=== PATIENT | male | born 1970 | race Two or more races ===

== ENCOUNTER 2020-10-02 17:17 | Emergency (ER) | payer SELFPAY ==
[~2020-10-02] VITALS: Ht 165.1 cm; Wt 75.0 kg
[2020-10-02] MEDS ORDERED: KETOROLAC 30 MG/ML VIAL. IVP ONE (18:45)
--- NOTE | 2020-10-02 18:57 | ED.ADGEN ---
Past Medical History Past Medical History: High Cholesterol, HIV, Hypertension, Seizure Additional Past Medical Histor: Liver Cirrhosis, alcohol abuse Past Surgical History: Appendectomy Smoking Status: Current Every Day Smoker Alcohol Use: Heavy General Adult EDM: Chief Complaint: SEIZURE HPI: HPI: Patient is a 50-year-old male with past medical history of HIV, cirrhosis, alcohol abuse, seizure disorder who presents to the emergency room after having a seizure at home. He had a second seizure in the waiting room. He states he has not been taking his medications as prescribed. He states he is feeling basically back to normal. He did drink today. He states that cirrhosis is due to too much alcohol. He has not been taking any of his medications. He has been having chest pain but states that this has been constant for several months and that he has been told that it is due to his cirrhosis. He denies any shortness of breath. He denies any new chest pain. He does not have any cough, URI symptoms, fever, chills, sweats. Review of Systems: Review of Systems: Complete ROS is negative unless otherwise documented in HPI Current Medications: Current Medications Medications (Trade) Dose Ordered Sig/Guido Start Time Stop Time Status Last Admin Dose Admin Ketorolac Tromethamine (Toradol 30mg Vial) 30 mg 1X ONCE 10/02/20 18:45 10/02/20 19:05 DC 10/02/20 19:14 30 MG Levetiracetam 1000 mg/Dextrose 110 ml @ 440 mls/hr 1X ONCE 10/02/20 19:00 10/02/20 19:14 DC 10/02/20 19:14 440 MLS/HR Lorazepam (Ativan Inj) 2 mg STK-MED ONCE 10/02/20 17:49 10/02/20 17:49 DC Allergies: Allergies: Allergies Uncoded Allergies Type Severity Reaction Last Updated Verified Unknown HIV medication. Allergy Unknown 10/02/20 Physical Exam: PE: General: Awake, alert, NAD. Well Nourished, well hydrated. Cooperative HEENT: Atraumatic, EOMI, PERRL, airway patent, moist oral mucosa Neck: Supple, trachea midline Respiratory: CTA bilaterally, normal effort, no wheezing/crackles CV: RRR, no murmur, cap refill <2 GI: Soft, nondistended, nontender, no masses MSK: No obvious deformities Skin: Warm, dry, intact Neuro: A&O x3, speech NL, sensory and motor grossly intact, no focal deficits Psych: Normal affect, normal mood, not suicidal or homicidal Current Patient Data: Labs: Laboratory Tests Test 10/02/20 18:05 10/02/20 19:20 Glucose (Fingerstick) 88 mg/dL (70-99) White Blood Count 5.3 x10^3/uL (4.0-11.0) Red Blood Count 4.23 x10^6/uL (4.30-5.70) L Hemoglobin 14.3 g/dL (13.0-17.5) Hematocrit 41.3 % (39.0-53.0) Mean Corpuscular Volume 98 fL (79-100) Mean Corpuscular Hemoglobin 34 pg (25-35) Mean Corpuscular Hemoglobin Concent 35 g/dL (31-37) Red Cell Distribution Width 15.2 % (11.5-14.5) H Platelet Count 134 x10^3/uL (140-400) L Neutrophils (%) (Auto) 44 % (31-73) Lymphocytes (%) (Auto) 41 % (24-48) Monocytes (%) (Auto) 11 % (0-9) H Eosinophils (%) (Auto) 3 % (0-3) Basophils (%) (Auto) 1 % (0-3) Neutrophils # (Auto) 2.4 x10^3/uL (1.8-7.7) Lymphocytes # (Auto) 2.2 x10^3/uL (1.0-4.8) Monocytes # (Auto) 0.6 x10^3/uL (0.0-1.1) Eosinophils # (Auto) 0.1 x10^3/uL (0.0-0.7) Basophils # (Auto) 0.1 x10^3/uL (0.0-0.2) Sodium Level 140 mmol/L (136-145) Potassium Level 3.8 mmol/L (3.5-5.1) Chloride Level 102 mmol/L (98-107) Carbon Dioxide Level 28 mmol/L (21-32) Anion Gap 10 (6-14) Blood Urea Nitrogen 6 mg/dL (8-26) L Creatinine 0.7 mg/dL (0.7-1.3) Estimated GFR (Cockcroft-Gault) 120.4 BUN/Creatinine Ratio 9 (6-20) Glucose Level 86 mg/dL (70-99) Calcium Level 8.2 mg/dL (8.5-10.1) L Total Bilirubin 0.3 mg/dL (0.2-1.0) Aspartate Amino Transferase (AST) 60 U/L (15-37) H Alanine Aminotransferase (ALT) 106 U/L (16-63) H Alkaline Phosphatase 63 U/L (46-116) Total Protein 8.1 g/dL (6.4-8.2) Albumin 3.8 g/dL (3.4-5.0) Albumin/Globulin Ratio 0.9 (1.0-1.7) L Ethyl Alcohol Level 340 mg/dL (0-10) H Laboratory Tests 10/02/20 19:20 Laboratory Tests 10/02/20 19:20 Vital Signs: Vital Signs Date Time Temp Pulse Resp B/P (MAP) Pulse Ox O2 Delivery O2 Flow Rate FiO2 10/02/20 17:38 98.1 94 18 174/111 (132) 96 Room Air 98.1 EKG: EKG: [] Heart Score: Risk Factors: Risk Factors: DM, Current or recent (<one month) smoker, HTN, HLP, family history of CAD, obesity. Risk Scores: Score 0 - 3: 2.5% MACE over next 6 weeks - Discharge Home Score 4 - 6: 20.3% MACE over next 6 weeks - Admit for Clinical Observation Score 7 - 10: 72.7% MACE over next 6 weeks - Early Invasive Strategies Radiology/Procedures: Radiology/Procedures: [] Course & Med Decision Making: Course & Med Decision Making Pertinent Labs and Imaging studies reviewed. (See chart for details) Patient is a 50-year-old male who presents to the emergency room after having 2 seizures today. Patient is noncompliant with his medications which is likely the cause of his seizures. Patient will be given Keppra here in the emergency room. Basic labs will be checked. EKG is normal and does not show signs of a STEMI. Patient has had work-ups for this his chronic chest pain previously. Will not repeat these work-ups as his chest pain is unchanged and constant. Patient did not have any further seizures. I have discussed with him that he really should take his Keppra. Patient's test results and vitals while in the ED were fully reviewed and discussed with the patient. Patient is stable and at this time does not need admission to the hospital. We have discussed strict return precautions and the importance of following up with their Primary Care Physician. Patient stated understanding and was given an opportunity to ask any questions. Patient is in agreement with plan. Dragon Disclaimer: Dragon Disclaimer: This electronic medical record was generated, in whole or in part, using a voice recognition dictation system. Departure Departure Impression: Primary Impression: Seizure Additional Impressions: Noncompliance Cirrhosis Disposition: 01 DC HOME SELF CARE/HOMELESS Condition: STABLE Referrals: NO PCP (PCP) Patient Instructions: Seizure, Adult Problem Qualifiers OSIEL MARIE MD Oct 02, 2020 18:57
[2020-10-02] MEDS ORDERED: levETIRAcetam 1,000 MG in IV DEXTROSE 5% 100ML 100 ML IV ONE (19:00)
[2020-10-02 19:26] LABS: BASO # 0.1 x10^3/uL (0.0-0.2); BASO % 1 % (0-3); EOS # 0.1 x10^3/uL (0.0-0.7); EOS % 3 % (0-3); HEMATOCRIT 41.3 % (39.0-53.0); HEMOGLOBIN 14.3 g/dL (13.0-17.5); LYMPH # 2.2 x10^3/uL (1.0-4.8); LYMPH % 41 % (24-48); MEAN CORPUSCULAR HEMOGLOBIN 34 pg (25-35); MEAN CORPUSCULAR HGB CONC 35 g/dL (31-37); MEAN CORPUSCULAR VOLUME 98 fL (79-100); MONO # 0.6 x10^3/uL (0.0-1.1); MONO % 11 % (0-9); NEUT # 2.4 x10^3/uL (1.8-7.7); NEUT % 44 % (31-73); PLATELET COUNT 134 x10^3/uL (140-400); RED BLOOD COUNT 4.23 x10^6/uL (4.30-5.70); RED CELL DISTRIBUTION WIDTH 15.2 % (11.5-14.5); WHITE BLOOD COUNT 5.3 x10^3/uL (4.0-11.0)
[2020-10-02 19:33] LABS: CALCIUM 8.2 mg/dL (8.5-10.1); CREATININE 0.7 mg/dL (0.7-1.3); GFR 120.4; POTASSIUM 3.8 mmol/L (3.5-5.1)
[2020-10-02 19:40] LABS: ALBUMIN 3.8 g/dL (3.4-5.0); ALBUMIN/GLOBULIN RATIO 0.9 (1.0-1.7); TOTAL BILIRUBIN 0.3 mg/dL (0.2-1.0); TOTAL PROTEIN 8.1 g/dL (6.4-8.2)
[2020-10-02 20:15] VITALS: BP 142/88
== END 2020-10-02 20:15 | disposition home or self-care (01) ==
LOC: ER 17:17
DX: G40.909 Epilepsy, unspecified, not intractable, without status epilepticus (principal); K74.60 Unspecified cirrhosis of liver; R07.89 Other chest pain; E78.00 Pure hypercholesterolemia, unspecified; I10 Essential (primary) hypertension; F17.200 Nicotine dependence, unspecified, uncomplicated; F10.10 Alcohol abuse, uncomplicated; Z90.89 Acquired absence of other organs
CPT/HCPCS: 36415; 80053; 82962; 85025; 96365; 96375; 99284; G0480; J1885; J1953; J7060